=== PATIENT | male | born 1980 | race Caucasian/White ===

== ENCOUNTER → 2016-05-26 | Outpatient (CLI) | payer BC ==
[~2016-05-26] MED LIST: FLEXERIL 1010 MG/TAB PO; NAPROSYN500 MG PO; NO HOME MEDICATIONS
== END ==
LOC: COL.RAD 05-22 11:15
DX: R10.11 Right upper quadrant pain (principal)

== ENCOUNTER → 2016-06-06 | Outpatient (CLI) | payer BC | LOC: COL.RAD 06:02 | DX: R10.11 Right upper quadrant pain (principal); Y84.2 Radiological procedure and radiotherapy as the cause of abnormal reaction of the patient, or of later complication, without mention of misadventure at the time of the procedure | CPT/HCPCS: A9537; J2805 ==